=== PATIENT | male | born 1955 | race Caucasian/White ===

== ENCOUNTER 2018-01-13 12:27 | Outpatient (REF) | payer BC, SELFPAY ==
--- NOTE | 2018-01-13 09:20 | SKI_PTH ---
PATIENT: Justyn Cervantes LOC: [facility] U#:[id number] AGE/SX: 62/M ROOM: RE01/13/[address]: Hitesh Sevilla : 1955 BED: DIS: 01/13/2018 SPEC #: [id number] RECD: 01/13/18 12:36 STATUS: BRENDA REQ #: [id number] AMRITA: 01/13/18 09:[address]: Hitesh Sevilla DEPT: Surgical Specimen RECD BY: Carmen Orr ENTERED: 01/13/18 12:37 SP TYPE: SKI OTHR DR: Levi Huntley Tissues: 1 - SKIN BIOPSY(SHAVE/PUNCH) Procedures: SKIN LEVEL 4 Comments: [id number]
== END 2018-01-13 12:47 ==
LOC: NCHCN 12:27
PROVIDERS: PCP Internal Medicine; Visit Provider Family Medicine
DX: C44.311 Basal cell carcinoma of skin of nose (principal)
CPT/HCPCS: 88305

== ENCOUNTER 2019-08-25 12:07 | Outpatient (REF) | payer OTHER, SELFPAY ==
[2019-08-25 14:43] LABS: ALT 33 U/L (16-63); AST 20 U/L (15-37); Albumin 3.8 g/dL (3.4-5.0); Alkaline Phosphatase 76 U/L (46-116); Anion Gap 7.8 mmol/L (3-11); BUN 12 mg/dL (7-18); Bilirubin, Total 0.6 mg/dL (0.2-1.0); CO2 29.2 mmol/L (21.0-32.0); CREATININE 0.97 mg/dL (0.70-1.30); Calcium 9.5 mg/dL (8.5-10.1); Calculated LDL 124 mg/dL (<100); Chloride 104 mmol/L (98-107); Cholesterol 173 mg/dL (<200); Glucose 92 mg/dL (74-106); HDL Cholesterol 36 mg/dL (40-60); Potassium 4.7 mmol/L (3.5-5.1); Sodium 141 mmol/L (136-145); Total Protein 7.1 g/dL (6.4-8.2); Triglyceride 67 mg/dL (<150)
== END 2019-08-25 12:27 ==
LOC: NCHCN 12:07
PROVIDERS: PCP Family Medicine; Visit Provider Family Medicine
DX: Z00.00 Encounter for general adult medical examination without abnormal findings (principal); Z11.9 Encounter for screening for infectious and parasitic diseases, unspecified
CPT/HCPCS: 80053; 80061

== ENCOUNTER 2020-08-26 03:37 | Outpatient (CLI) | payer BC, SELFPAY ==
[2020-08-26 11:27] LABS: Source Nasal/Nares
[2020-08-26 13:29] LABS: COVID-19 PCR Negative (Negative)
== END 2020-08-26 03:38 | disposition home or self-care (01) ==
LOC: LBO 03:37
PROVIDERS: PCP Family Medicine; Visit Provider Internal Medicine Gastroenterology
DX: Z20.822 Contact with and (suspected) exposure to COVID-19 (principal); Z01.818 Encounter for other preprocedural examination
CPT/HCPCS: 87635

== ENCOUNTER 2020-11-14 19:54 | Outpatient (REF) | payer BC, SELFPAY ==
[2020-11-14 20:52] LABS: Anion Gap 11.9 mmol/L (3-11); BUN 16 mg/dL (7-18); CO2 25.1 mmol/L (21.0-32.0); CREATININE 0.8 mg/dL (0.70-1.30); Calcium 9.7 mg/dL (8.5-10.1); Chloride 104 mmol/L (98-107); Glucose 91 mg/dL (74-106); Potassium 4.8 mmol/L (3.5-5.1); Sodium 141 mmol/L (136-145)
== END 2020-11-14 19:55 | disposition home or self-care (01) ==
LOC: NCHCN 19:54
PROVIDERS: PCP Family Medicine; Visit Provider Family Medicine
DX: E11.9 Type 2 diabetes mellitus without complications (principal)
CPT/HCPCS: 80048

== ENCOUNTER 2021-12-18 13:50 | Outpatient (REF) | payer BC, SELFPAY ==
[2021-12-18 15:50] LABS: Abs Immature Grans 0.02 10^3/uL (0.0-0.06); Absolute Basophil Count 0.04 10^3/uL (0.0-0.2); Absolute Eosinophil Count 0.16 10^3/uL (0.0-0.7); Absolute Lymphocyte Count 1.39 10^3/uL (1.2-3.4); Absolute Monocyte Count 0.46 10^3/uL (0.1-0.8); Absolute Neutrophil Count 4.77 10^3/uL (1.2-6.7); Basophils % 0.6; Eosinophils % 2.3; HCT 42.2 % (40.0-50.0); Immature Grans % 0.3; Lymphocytes % 20.3; MCH 27.7 pg (27.0-33.0); MCHC 33.2 % (32.0-36.0); MCV 84 fL (80-95); MPV 10.3 fL (8.0-11.0); Monocytes % 6.7; Neutrophils % 69.8; Platelet Count 253 10^3/uL (130-400); RBC 5.05 10^6/uL (4.36-5.78); RDW 12.6 % (11.8-14.1); RDW-SD 37.8 fL; WBC 6.84 10^3/uL (4.4-10.8)
[2021-12-18 16:37] LABS: ALT 34 U/L (16-63); AST 19 U/L (15-37); Albumin 3.8 g/dL (3.4-5.0); Alkaline Phosphatase 81 U/L (46-116); Anion Gap 8.6 mmol/L (3-11); BUN 14 mg/dL (7-18); Bilirubin, Total 0.7 mg/dL (0.2-1.0); CO2 28.4 mmol/L (21.0-32.0); CREATININE 0.9 mg/dL (0.70-1.30); Calcium 9.5 mg/dL (8.5-10.1); Calculated LDL 75 mg/dL (<100); Chloride 104 mmol/L (98-107); Cholesterol 130 mg/dL (<200); Estimated GFR 94.78 (mL/min/1.73m2); Glucose 174 mg/dL (74-106); HDL Cholesterol 37 mg/dL (40-60); Potassium 4.2 mmol/L (3.5-5.1); Sodium 141 mmol/L (136-145); Total Protein 6.9 g/dL (6.4-8.2); Triglyceride 94 mg/dL (<150)
[2021-12-18 19:04] LABS: C-Reactive Protein 0.64 mg/dL (0.0-0.3)
== END 2021-12-18 13:51 | disposition home or self-care (01) ==
LOC: NCHCN 13:50
PROVIDERS: PCP Family Medicine; Visit Provider Family Medicine
DX: K50.90 Crohn's disease, unspecified, without complications (principal); E11.9 Type 2 diabetes mellitus without complications; Z00.00 Encounter for general adult medical examination without abnormal findings
CPT/HCPCS: 80053; 80061; 85025; 86140

== ENCOUNTER 2022-10-15 00:50 | Outpatient (CLI) | payer BC, SELFPAY ==
--- NOTE | 2022-10-15 | DI.CT_ITS ---
Exam(s) CT NECK W EXAM: CT NECK W INDICATION: SUPRACLAVICULAR LYMPHADENOPATHY, R59.0 2 CM LT. COMPARISON: No exams were available for comparison TECHNIQUE: FINDINGS: VISUALIZED PARANASAL SINUSES: Mucosal thickening in the floor of the left maxillary sinus. No associ ated fluid level. Right maxillary sinus is clear. Sphenoid sinuses are clear. NASOPHARYNX: Unremarkable ORODENTAL: Unremarkable. OROPHARYNX: Unremarkable. No masses evident. HYPOPHARYNX: Unremarkable. Valleculae and epiglottis and aryepiglottic folds appear normal. VOCAL CORDS: Unremarkable. No masses evident. Subglottic airway appears unremarkable. THYROID GLAND: Unremarkable. Normal size and no obvious nodules. SALIVARY GLANDS: Unremarkable. No significant findings in the parotid and submandibular glands. LYMPH NODES: There is no adenopathy evident in the neck and supraclavicular regions. OTHER: No plaque noted at the carotid bifurcations and proximal internal carotid arteries bilaterally . No critical stenosis evident. VISUALIZED LUNG APICES: No significant findings. IMPRESSION: 1. No abnormal mass nor fluid collection in the neck. 2. No obvious lymphadenopathy, as per request. Also no supraclavicular adenopathy. 3. Mild mucosal thickening noted in the left maxillary sinus. RADIATION DOSE DELIVERED: 573.34mGy.cm Total DLP DATA REPOSITORY: All CT scans at this facility are submitted to the National Radiology Data Registry (NRDR) Dose Index Registry (DIR) with the [employer] ([employer]). RADIATION OPTIMIZATION: All CT scans at this facility use at least one of these dose optimization te chniques: automated exposure control; mA and/or kV adjustment per patient size (includes targeted exa ms where dose is matched to clinical indication); or iterative reconstruction.
[2022-10-15 14:23] LABS: CREATININE 1.1 mg/dL (0.70-1.30); Estimated GFR 74.04 (mL/min/1.73m2)
[2022-10-15] MEDS: Omnipaque 350 MG/ML 100 ML BTL IJ (15:12)
[2022-10-15] MEDS: Normal Saline - Diluent 50 ML VIAL IJ (15:13)
== END 2022-10-15 01:10 ==
LOC: DI 00:50
PROVIDERS: PCP Family Medicine; Visit Provider Family Medicine
DX: J32.9 Chronic sinusitis, unspecified (principal); R59.0 Localized enlarged lymph nodes
CPT/HCPCS: 70491; 82565; J3490

== ENCOUNTER 2023-05-07 18:46 | Outpatient (REF) | payer BC, SELFPAY ==
[2023-05-07 20:03] LABS: Hemoglobin A1C 7.4 % (<5.7)
== END 2023-05-07 18:47 | disposition home or self-care (01) ==
LOC: NCHCN 18:46
PROVIDERS: PCP Family Medicine; Visit Provider Family Medicine
DX: E11.9 Type 2 diabetes mellitus without complications (principal)
CPT/HCPCS: 83036

== ENCOUNTER 2023-11-26 19:50 | Outpatient (REF) | payer MEDICARE, SELFPAY ==
[2023-11-26 16:11] LABS: COMMENT (LAB VIEW ONLY) 116.82 mg/dL
[2023-11-26 16:12] LABS: Microalb ug/mg Crea 93.4 ug/mg Cr
== END 2023-11-26 19:51 | disposition home or self-care (01) ==
LOC: NCHCN 19:50
PROVIDERS: PCP Student in an Organized Health Care Education/Training Program; Visit Provider Student in an Organized Health Care Education/Training Program
DX: E11.9 Type 2 diabetes mellitus without complications (principal); I10 Essential (primary) hypertension
CPT/HCPCS: 80048; 82043; 82570; 83735

== ENCOUNTER 2024-02-04 11:01 | Outpatient (CLI) | payer MEDICARE, SELFPAY ==
[2024-02-04 11:35] LABS: Anion Gap 10.6 mmol/L (3-11); BUN 19 mg/dL (7-18); CO2 27.4 mmol/L (21.0-32.0); CREATININE 1.4 mg/dL (0.70-1.30); Calcium 9.7 mg/dL (8.5-10.1); Chloride 106 mmol/L (98-107); Estimated GFR 55.09 (mL/min/1.73m2); Glucose 145 mg/dL (74-106); Magnesium 1.7 mg/dL (1.8-2.4); Potassium 4.3 mmol/L (3.5-5.1); Sodium 144 mmol/L (136-145)
== END 2024-02-04 11:02 | disposition home or self-care (01) ==
LOC: LBO 11:02
PROVIDERS: PCP Student in an Organized Health Care Education/Training Program; Visit Provider Student in an Organized Health Care Education/Training Program
DX: I10 Essential (primary) hypertension (principal)
CPT/HCPCS: 36415; 80048; 83735

== ENCOUNTER 2024-04-02 09:51 | Outpatient (REF) | payer MEDICARE, SELFPAY ==
[2024-04-02 16:17] LABS: COMMENT (LAB VIEW ONLY) 112.53 mg/dL; Microalb ug/mg Crea 86.6 ug/mg Cr
== END 2024-04-02 09:52 | disposition home or self-care (01) ==
LOC: NCHCN 09:51
PROVIDERS: PCP Student in an Organized Health Care Education/Training Program; Visit Provider Student in an Organized Health Care Education/Training Program
DX: Z87.448 Personal history of other diseases of urinary system (principal); Z13.89 Encounter for screening for other disorder
CPT/HCPCS: 82043; 82570